=== PATIENT | female | born 2005 | race Caucasian/White ===

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

== ENCOUNTER 2024-10-20 13:12 | Emergency (ER) | payer BC, SELFPAY ==
--- NOTE | ~2024-10-20 | XR_ITS ---
Clinical Indication: Cough PA and lateral views of the chest: Comparison: 05/23/2023 Findings: The lungs are clear, without evidence of focal consolidation or pleural effusion. Cardiome diastinal silhouette is within normal limits. Bones and soft tissues are unremarkable. Impression: Normal chest. Reviewed, dictated and finalized at location . Impression: Normal chest.
[2024-10-20 13:20] VITALS: BP 118/87; PULSE 95; RESP 19; TEMP 36.9; O2SAT 100
--- NOTE | 2024-10-20 13:30 | ED_ITS ---
HPI - General Adult General Chief complaint: Unspecified Stated complaint: Light Headed/ Trouble Breathing Time Seen by Provider: 10/20/24 13:30 Mode of arrival: ambulatory Limitations: no limitations History of Present Illness HPI narrative: 19-year-old female with history of anxiety presents with concern for feeling lightheaded yesterday and today. Reports her upper lip looked pale yesterday. Reports she has had cough for 1 month, she is having left-sided chest pain when she takes deep breath. She denies fever and shortness of breath. Denies current pain MD complaint: cough Related Data Home Medications ?Medication ?Instructions ?Recorded ?Confirmed ?Last Taken ?Type azelastine 137 mcg (0.1 %) nasal 2 spray intranasal DIRECTED 09/25/23 09/25/23 Unknown History spray cetirizine 10 mg tablet 10 mg PO DAILY 09/25/23 09/25/23 Unknown History Allergies Allergy/AdvReac Type Severity Reaction Status Date / Time No Known Allergies Allergy Verified 10/20/24 13:23 Review of Systems Review of Systems: CONSTITUTIONAL: Denies malaise, chills, sweats, or fever. Reports lightheadedness EYES: Denies visual changes, redness, or discharge. ENT: Reports rhinorrhea, congestion. Denies sinus pain, otalgia or sore throat. CARDIOVASCULAR: Denies chest pain, palpitations, or edema. RESPIRATORY: Reports cough. Denies dyspnea. GASTROINTESTINAL: Denies abdominal pain, nausea, vomiting, diarrhea, bloody, or mucous stools. GENITOURINARY: Denies dysuria or hematuria. SKIN: Denies rash or itching. MUSCULOSKELETAL: Denies back pain, joint pain, or myalgia. Reports left- sided/lateral chest pain with coughing or deep breathing NEUROLOGIC: Denies numbness, weakness, or headache. PSYCHIATRIC: Denies anxiety or depression. All systems reviewed & are unremarkable except as noted in HPI and below PMFSH Comments At time of signature, agree with nursing past medical, surgical, social and family history. There is no relevant family history pertinent to the presenting complaint Exam Narrative: GENERAL: Well-appearing, well-nourished, and in no acute distress. HEAD: Normocephalic, atraumatic. EYES: PERRLA, sclera clear, and EOMI. No nystagmus. ENT: Nares clear, turbinates pink, no rhinorrhea or epistaxis. Mucous membranes moist. TM pearly walter with sharp light reflex bilaterally; no tragal tenderness. Oropharynx without erythema or lesions. Tonsils not enlarged and without exudate. NECK: Supple. No lymphadenopathy. CHEST: No respiratory distress. Clear to auscultation. No bony deformities, no asymmetry. Speaks in full sentences. HEART: Regular rate and rhythm. No murmur heard. Normal peripheral pulses. ABDOMEN: Soft, nontender, nondistended, normal active bowel sounds, no palpable masses. No chest wall tenderness EXTREMITIES: Normal range of motion. No edema. Normal strength and sensation. SKIN: Warm, dry, no visible rash. NEURO: Alert and oriented x3. PSYCH: Normal mood and affect Course Course Emergency Course: Patient is aware of diagnosis, understands and agrees to treatment plan. Anticipatory guidance given. Patient agrees to follow-up as directed and is aware of reasons to seek care at the emergency department. Portions of this record may have been created with voice recognition software Level of Care: Express Care Visit Vital Signs Vital signs: Vital Signs Temperature 98.4 F 10/20/24 13:20 Pulse Rate 95 10/20/24 13:20 Respiratory Rate 19 10/20/24 13:20 Blood Pressure 118/87 10/20/24 13:20 Pulse Oximetry 100 10/20/24 13:20 Oxygen Delivery Room Air 10/20/24 13:20 Temperature 98.4 F 10/20/24 13:20 Pulse Rate 95 10/20/24 13:20 Respiratory Rate 19 10/20/24 13:20 Blood Pressure 118/87 10/20/24 13:20 Pulse Oximetry 100 10/20/24 13:20 Oxygen Delivery Room Air 10/20/24 13:20 Reviewed. Medical Decision Making MDM Narrative Medical decision making narrative: The patient was evaluated by myself in the emergency department. History is obtained from patient who is an independent historian and physical exam was performed.? Available medical records were reviewed at this time. ? Exam findings and imaging show no acute concerns or changes; patient is non- toxic appearing and is in no distress. Patient is appropriate for outpatient treatment and follow-up. ? I have evaluated and discussed social determinants of health with the patient that could potentially impact subsequent diagnosis and treatment plans. ? Differential diagnosis and treatment plan were discussed with the patient. Patient agrees with discussion and after shared medical decision making agrees with plan of care. All questions were answered to the patient's satisfaction. Vital Signs Vital Signs: Vital Signs Temperature 98.4 F 10/20/24 13:20 Pulse Rate 95 10/20/24 13:20 Respiratory Rate 19 10/20/24 13:20 Blood Pressure 118/87 10/20/24 13:20 Pulse Oximetry 100 10/20/24 13:20 Oxygen Delivery Room Air 10/20/24 13:20 Temperature 98.4 F 10/20/24 13:20 Pulse Rate 95 10/20/24 13:20 Respiratory Rate 19 10/20/24 13:20 Blood Pressure 118/87 10/20/24 13:20 Pulse Oximetry 100 10/20/24 13:20 Oxygen Delivery Room Air 10/20/24 13:20 Imaging Data My impression: Images reviewed, interpreted by radiologist, agree, see report. Radiologist's impression: Clinical Indication: Cough PA and lateral views of the chest: Comparison: 05/23/2023 Findings: The lungs are clear, without evidence of focal consolidation or pleural effusion. Cardiomediastinal silhouette is within normal limits. Bones and soft tissues are unremarkable. Impression: Normal chest. Critical Care Time Critical Care Time Critical Care Time: No Discharge Plan Discharge Clinical Impression: Cough Patient Disposition: Home, Self-Care Condition: Stable Instructions: Acute Cough (ED) Additional Instructions: Your chest x-ray is normal. Your exam is normal We will treat year 1 month cough with antibiotics. You can take [id number] cough medicine if you feel like he needed. Use nose spray as directed If you have any worsening symptoms or other urgent concerns you should go to the emergency room. Patient Language: [place] Prescriptions: New azithromycin [Zithromax Z-Paul] 250 mg tablet See Rx Instructions .ROUTE .COMPLEX Qty: 6 0RF Rx Instructions: take 500 mg today (day 1), then 250 mg for 4 days (days 2-5) fluticasone propionate [Flonase Allergy Relief] 50 mcg/actuation spray,suspension 2 spray NASAL DAILY 14 Days Qty: 15.8 0RF Rx Instructions: administer into each nostril No Action cetirizine 10 mg tablet 10 mg PO DAILY azelastine 137 mcg (0.1 %) aerosol,spray 2 spray INTRANASAL DIRECTED Follow-up/Referrals: PHYSICIAN,BOTTOMER OPERATOR [Primary Care Provider] - Stand Alone Forms: Work/School Release IP Time of Disposition: 14:21
== END 2024-10-20 14:25 | disposition home or self-care (01) ==
PROVIDERS: Emergency Provider Nurse Practitioner
DX: R05.9 Cough, unspecified (principal)
CPT/HCPCS: 71046; 99213; G0463